=== PATIENT | female | born 1995 ===

== ENCOUNTER 2023-07-03 13:33 | Emergency (ER) | payer MEDICAID ==
[~2023-07-03] VITALS: Ht 162.6 cm; Wt 87.3 kg
[2023-07-03 13:38] VITALS: BP 134/50; PULSE 104; RESP 16; TEMP 98.3; O2SAT 96
== END 2023-07-03 23:02 | disposition left against medical advice (07) ==
LOC: ER 13:34
DX: O46.8X2 Other antepartum hemorrhage, second trimester (principal); Z53.21 Procedure and treatment not carried out due to patient leaving prior to being seen by health care provider
CPT/HCPCS: 99281